=== PATIENT | male | born 1975 ===

== ENCOUNTER 2017-02-21 14:17 | Emergency (ER) | payer OTHER ==
[2017-02-21 14:31] VITALS: O2SAT 98
--- NOTE | 2017-02-21 14:58 | C.PDOC ---
History Of Present Illness 41 yo male come in for evaluation of left shoulder pain gradually developed for apst 3 weeks. Pt reports, for past week , pain worse, localized, aching and worse with Left arm lifting. Pt admits, was seen by chiropractor yesterday, who made some manipulation over neck and left shoulder area. Pt sts, "today, woke up with severe pain all over my Left shoulder". Otherwise, pt denies fever, chills, headache, dizziness, CP, SOB, dyspnea, diaphoresis, palpitation, abd. pain, N/V, denies weakness, sensory or vascular deficits to B/L UEs. Ambulate to Ed for evaluation, appears in pain. Time Seen by Provider: 02/21/17 14:34 Chief Complaint (Nursing): Upper Extremity Problem/Injury History Per: Patient History/Exam Limitations: no limitations Onset/Duration Of Symptoms: Days (3 weeks), Worse Since (Morning ) Past Medical History Reviewed: Historical Data, Nursing Documentation, Vital Signs Vital Signs: Last Vital Signs Temp 97.8 F 02/21/17 14:30 Pulse 83 02/21/17 14:30 Resp 17 02/21/17 14:30 BP 126/78 02/21/17 14:30 Pulse Ox 98 02/21/17 15:24 Family History: States: No Known Family Hx Review Of Systems Except As Marked, All Systems Reviewed And Found Negative. Constitutional: Negative for: Fever, Chills Cardiovascular: Negative for: Chest Pain, Palpitations Respiratory: Negative for: Shortness of Breath Gastrointestinal: Negative for: Nausea, Vomiting, Abdominal Pain Musculoskeletal: Positive for: Shoulder Pain (Left shoulder ) Neurological: Negative for: Weakness, Headache Physical Exam - Physical Exam Appears: Well, Non-toxic, No Acute Distress Skin: Normal Color, Warm, No Rash Neck: No Midline Cervical Tenderness, No Paracervical Tenderness, No Step Off Deformity, Supple, Other (9-) carotid bruits) Chest: Symmetrical, No Deformity Cardiovascular: Rhythm Regular, No Friction Rub, No Murmur, No JVD Respiratory: No Decreased Breath Sounds, No Accessory Muscle Use, No Stridor, No Wheezing Gastrointestinal/Abdominal: Soft, No Tenderness Back: No CVA Tenderness, No Vertebral Tenderness Extremity: Normal ROM, Tenderness (superior Left shoulder tenderness with mild decrease on left shoulder extension and abduction. No palpable deformity, no neurovascular deficist distally, no skin changes.), No Deformity, No Swelling Neurological/Psych: Oriented x3, Normal Speech, Normal Motor, Normal Sensation, Normal Reflexes ED Course And Treatment O2 Sat by Pulse Oximetry: 98 (RA ) Pulse Ox Interpretation: Normal - Other Rad X-Ray - Left Shoulder X-Ray: Viewed By Me Interpretation: no acute fx or dislocation Progress Note: On re-evaluation, pt is afebrile, hemodynamicaly stable. NOn- toxic. Neck: (-) midline tenderness. CVS: (+)S1S2, reg. LUE: exam c/w left shoulder tendonitis. NO deformity, FAROM, no neurovascular deficits. Neurologicaly intact. Xray review and appears normal. Sling applied to Left arm. Pt advised and ref. to F/U with PMD, Orho in 2-3 days for re-eval. Return to ED if any worsening or new changes. Medical Decision Making Medical Decision Making: PLAN: * X-Ray - Left Shoulder * Motrin PO * Tramadol PO * Valium PO Disposition Counseled Patient/Family Regarding: Studies Performed, Diagnosis, Need For Followup, Rx Given - Disposition Referrals: Clinic,Med Surg [Primary Care Provider] - [facility] [Outside] [facility] [place] [Outside] Disposition: HOME/ ROUTINE Disposition Time: 15:29 Condition: STABLE Additional Instructions: SLing Light duty to Right arm, avoid arm lifting, etc Take medication as prescribed Follow up with Orthopedist in 2-3 days for re-evaluation. Return to Ed if any worsening or new changes. Prescriptions: Methocarbamol [Robaxin] 500 mg PO TID #14 tab traMADol [Ultram] 50 mg PO TID #7 tab Instructions: Calcific Tendinitis (ED), Cervical Radiculopathy (ED) Forms: [employer] (Y[place]i) Print Language: GRENADIAN - Clinical Impression Clinical Impression: Cervical radiculopathy, Shoulder tendonitis
--- NOTE | 2017-02-21 15:33 | RAD ---
PROCEDURE: Radiographs of the Left Shoulder HISTORY: pain COMPARISON: No prior. FINDINGS: BONES: No acute displaced fracture. The distal clavicle and underlying ribs appear intact. JOINTS: No acute dislocation. SOFT TISSUES: Soft tissues appear unremarkable. No evidence of radiopaque foreign body. IMPRESSION: No acute displaced fracture or dislocation evident. If symptoms persist or if there is continued clinical concern, x-ray follow-up in 7-10 days should be considered.
[2017-02-21 15:54] VITALS: BP 132/75; PULSE 64; RESP 18; TEMP 98.1
== END 2017-02-21 15:55 | disposition home or self-care (01) ==
LOC: SUPCPDRO 14:17 → C.ER 14:17
DX: M75.92 Shoulder lesion, unspecified, left shoulder (principal); M54.12 Radiculopathy, cervical region

== ENCOUNTER 2017-03-14 10:31 | Emergency (ER) | payer OTHER, SELFPAY ==
--- NOTE | 2017-03-14 11:47 | C.PDOC ---
History Of Present Illness Pt c/o left shoulder region pain. He was seen here and had negative left shoulder x-rays, but pain persists. Time Seen by Provider: 03/14/17 11:06 Chief Complaint (Nursing): Upper Extremity Problem/Injury History Per: Patient Onset/Duration Of Symptoms: Days (about 3 weeks) Current Symptoms Are (Timing): Still Present Quality: "Pain" Severity: Moderate Exacerbating Factor(s): Strenuous Use Of Affected Area, Movement Additional History Per: Prior Records Past Medical History Reviewed: Historical Data, Nursing Documentation, Vital Signs Vital Signs: Last Vital Signs Temp 97.8 F 03/14/17 10:57 Pulse 91 H 03/14/17 10:57 Resp 20 03/14/17 10:57 BP 119/82 03/14/17 10:57 Pulse Ox 99 03/14/17 10:57 - Medical History PMH: No Chronic Diseases Surgical History: No Surg Hx Family History: States: Unknown Family Hx - Social History Hx Alcohol Use: No Hx Substance Use: No - Immunization History Hx Tetanus Toxoid Vaccination: Yes Hx Influenza Vaccination: Yes Hx Pneumococcal Vaccination: No Review Of Systems Except As Marked, All Systems Reviewed And Found Negative. Constitutional: Negative for: Fever, Weakness Cardiovascular: Negative for: Chest Pain Respiratory: Negative for: Shortness of Breath Gastrointestinal: Negative for: Vomiting, Abdominal Pain Musculoskeletal: Positive for: Shoulder Pain (left) Neurological: Negative for: Weakness, Numbness, Seizures, Altered Mental Status Physical Exam - Physical Exam Appears: Non-toxic, No Acute Distress Skin: Normal Color, Warm, Dry Head: Atraumatic, Normacephalic Eye(s): bilateral: Normal Inspection, PERRL, EOMI Neck: Normal ROM, No Midline Cervical Tenderness, Paracervical Tenderness (left trapezius area), No Step Off Deformity, Supple Chest: Symmetrical, No Deformity, No Subcutaneous Emphysema Cardiovascular: Rhythm Regular Respiratory: Normal Breath Sounds, No Accessory Muscle Use Gastrointestinal/Abdominal: Soft, No Tenderness Back: No CVA Tenderness, No Vertebral Tenderness Extremity: Normal ROM, Tenderness (nonspecific left shoulder region), No Capillary Refill, No Deformity Pulses: Left Radial: Normal Neurological/Psych: Oriented x3, Normal Motor, Normal Sensation ED Course And Treatment O2 Sat by Pulse Oximetry: 99 Pulse Ox Interpretation: Normal Progress Note: Pt was placed in left arm sling by me. Reassessment Condition: Improved Disposition Counseled Patient/Family Regarding: Diagnosis, Need For Followup, Rx Given - Disposition Referrals: Darrick Calderon MD [Staff Provider] - [facility] [Outside] Disposition: HOME/ ROUTINE Disposition Time: 11:48 Condition: STABLE Additional Instructions: Use sling as instructed for comfort. Follow up with an orthopedic doctor for further evaluation and treatment. Return to the ER if you develop worsening of symptoms or if you have any other concerns. Prescriptions: Ibuprofen [Motrin Tab] 600 mg PO Q8 PRN #30 tab PRN Reason: Pain, Moderate (4-7) Instructions: Shoulder Pain (ED) Forms: [employer] ([place] Citizen) - Clinical Impression Clinical Impression: Pain of left shoulder region
[2017-03-14 12:12] VITALS: BP 105/73; PULSE 80; RESP 18; TEMP 99; O2SAT 100
== END 2017-03-14 12:11 | disposition home or self-care (01) ==
LOC: C.ER 10:31
DX: M25.512 Pain in left shoulder (principal)
CPT/HCPCS: 96372; 99285; J1885